=== PATIENT | male | born 1965 | race Caucasian/White ===

== ENCOUNTER 2022-08-09 23:49 | Emergency (ER) | payer OTHER ==
[2022-08-10] MEDS ORDERED: Aspirin 81 MG Tab.Chew PO ONE (00:06)
[2022-08-10] MEDS ORDERED: Nitroglycerin 0.4 MG Tab.SL SL ONE ×2 (00:07→20:07)
[2022-08-10] MEDS ORDERED: Metoprolol Tartrate 5 MG/5 ML SDV IVPUSH ONE ×2 (01:00→01:55)
[2022-08-10] MEDS ORDERED: Metoprolol Tartrate 5 MG/5 ML SDV ONE (01:09)
== END 2022-08-10 02:10 | disposition home or self-care (01) ==
LOC: LB.ED 23:49
DX: R00.2 Palpitations (principal); I10 Essential (primary) hypertension; K21.9 Gastro-esophageal reflux disease without esophagitis; Z79.899 Other long term (current) drug therapy
CPT/HCPCS: 36415; 80053; 83735; 84100; 84443; 84484; 85027; 85379; 93005; 93010; 96365; 96375; 99283; 99285-25; A9270-GY; J3475; J3490